=== PATIENT | female | born 1980 | race Caucasian/White ===

== ENCOUNTER 2019-02-25 09:20 | Emergency (ER) | payer OTHER, MEDICAID ==
[~2019-02-25] VITALS: Ht 162.6 cm; Wt 102.5 kg
[2019-02-25 09:24] VITALS: BP 129/68
--- NOTE | 2019-02-25 10:12 | NUR ---
PT AMBULATED TO ER BED 02
--- NOTE | 2019-02-25 10:15 | NUR ---
BIB MOTHER. AAO X4 C/O R LOWER BACK RADIATING TO R SIDE OF THE BODY PAIN X 5 DAYS, DENIES FALL OR INJURY. PT STATES 8/10 ACHING PAIN. STEADY GAIT. DENIES SOB, DENIES DYSURIA. HOB UP. BED SIDE RAILS UP X1. ON LOW BED POSITION, LOCKED. ER MADE AWARE OF PT STATUS.
[2019-02-25] MEDS ORDERED: LEVOFLOXACIN 500 MG TAB PO ONE (12:55)
[2019-02-25] MEDS ORDERED: MORPHINE SULFATE 4 MG/ML SYR IM ONE (12:55)
[2019-02-25] MEDS ORDERED: KETOROLAC 60 MG/2 ML VIAL IM ONE (12:55)
--- NOTE | 2019-02-25 12:57 | NUR ---
DR CUEVAS AT BEDSIDE FOR PT EVALUATION
[2019-02-25 13:06] LABS: APPEARANCE,URINE CLEAR (CLEAR); BILIRUBIN,URINE NEGATIVE (NEGATIVE); BLOOD, URINE NEGATIVE (NEGATIVE); COLOR,URINE YELLOW (YELLOW); LEUKOCYTE ESTERASE ,URINE NEGATIVE (NEGATIVE); NITRITE, URINE NEGATIVE (NEGATIVE); PH,URINE 6.5 (5.0-9.0); UGLUCOSE NEGATIVE (NEGATIVE)
[2019-02-25 14:40] VITALS: BP 125/62
--- NOTE | 2019-02-25 14:40 | NUR ---
Patient discharged with v/s stable. Written and verbal after care instructions given and explained. Patient alert, oriented and verbalized understanding of instructions. Ambulatory with steady gait. All questions addressed prior to discharge. ID band removed. Patient advised to follow up with PMD. Rx of Voltaren XR given. Patient educated on indication of medication including possible reaction and side effects. Opportunity to ask questions provided and answered.
== END 2019-02-25 14:40 | disposition home or self-care (01) ==
LOC: MED 09:20
DX: M54.41 Lumbago with sciatica, right side (principal)
CPT/HCPCS: 81002; 81003; 81025; 96372; 99283; J1885; J2270

== ENCOUNTER 2019-03-29 01:05 | Emergency (ER) | payer OTHER, MEDICAID ==
[~2019-03-29] VITALS: Ht 162.6 cm; Wt 92.5 kg
[2019-03-29 01:17] VITALS: BP 128/76
--- NOTE | 2019-03-29 01:19 | NUR ---
PT AMBULATORY TO ER LOBBY W/ STEADY GAIT IN STABLE CONDITION.
--- NOTE | 2019-03-29 01:51 | NUR ---
PT AMBULATED TO ER BED 1
--- NOTE | 2019-03-29 01:55 | NUR ---
BIB FAMILY WITH REPORTS CONGESTION, BILATERAL EAR PAIN AND THROAT PAIN SINCE YESTERDAY. STATES SHE CAN NOT BREATH THROUGH HER NOSE AT ALL. REPORTS FEVER YESTERDAY OF UNKNOWN TEMPERATURE. DENIES NVD, CP. PATIENT SITTING UP IN BED WITHOUT S/S OF RESP DISTRESS. ERMD AWARE.
--- NOTE | 2019-03-29 01:58 | NUR ---
DR WILEY AT BEDSIDE.
[2019-03-29] MEDS ORDERED: FAMOTIDINE 20 MG TAB PO ONE (02:10)
[2019-03-29 02:25] VITALS: BP 124/78
--- NOTE | 2019-03-29 02:25 | NUR ---
Patient discharged with v/s stable. Written and verbal after care instructions given and explained. Patient alert, oriented and verbalized understanding of instructions. Ambulatory with steady gait. All questions addressed prior to discharge. ID band removed. Patient advised to follow up with PMD. Rx of PEPCID AND FLONASE given. Patient educated on indication of medication including possible reaction and side effects. Opportunity to ask questions provided and answered.
== END 2019-03-29 02:25 | disposition home or self-care (01) ==
LOC: MED 01:05
DX: F41.0 Panic disorder [episodic paroxysmal anxiety] (principal); J06.9 Acute upper respiratory infection, unspecified; H92.03 Otalgia, bilateral
CPT/HCPCS: 99283

== ENCOUNTER 2019-05-18 13:05 | Emergency (ER) | payer OTHER, MEDICAID ==
[~2019-05-18] VITALS: Ht 170.2 cm; Wt 100.5 kg
[2019-05-18 13:25] VITALS: BP 154/88
--- NOTE | 2019-05-18 13:31 | NUR ---
PATIENT AMBULATED TO BED 4.
--- NOTE | 2019-05-18 13:40 | NUR ---
PT PRESENTS TO ED WITH C/O NUMBNESS TO NECK AND LEFT ARM. DENIES ANY SOB, CP, -N/-V. DENIES FEVER; AFEBRILE AT THIS TIME. PT VERBALIZED FEELING A BURNING SENSATION; DENIES PAIN. PT ALERT AND ORIENTED TO PERSON, PLACE, TIME AND EVENT. PERRLA. BILATERAL HAND POUNCER MACHINE EQUAL; BILATERAL FOOT PUSH EQUAL. NO FACIAL DROOP NOTED. PLACED IN GOWN; CONNECTED TO MONITOR. FAMILY MEMBER AT BEDSIDE. ERMD TO EVALUATE PT. RX: TYLENOL PRN ALLERGIES: DENIES
[2019-05-18 14:58] LABS: BASOPHILS # (AUTO) 0.1 K/uL (0.00-0.22); BASOPHILS % (AUTO) 0.7 % (0.0-2.0); EOSINOPHILS # (AUTO) 0.3 K/uL (0-0.4); HEMATOCRIT 38.1 % (36-48); HEMOGLOBIN 12.8 g/dL (12.0-16.0); LYMPHOCYTES % (AUTO) 23.4 % (20.5-51.1); MEAN CORPUSCULAR HEMOGLOBIN 30 pg (27-31); MEAN CORPUSCULAR HGB CONC 34 g/dL (33-37); MEAN CORPUSCULAR VOLUME 89.8 fL (80-94); MONOCYTES # (AUTO) 0.4 K/uL (0.8-1.0); MONOCYTES % (AUTO) 4.9 % (1.7-9.3); NEUTROPHILS # (AUTO) 5.8 K/uL (1.8-7.7); PLATELET COUNT (AUTO) 207 K/uL (140-450); RED BLOOD CELL COUNT(AUTO) 4.25 MIL/uL (4.20-5.40); RED CELL DISTRIBUTION WIDTH 12.8 % (11.6-13.7); WHITE BLOOD COUNT (AUTO) 8.5 K/uL (4.8-10.8)
[2019-05-18 15:18] LABS: ALBUMIN 3.6 g/dL (3.4-5.0); ANION GAP 12.3 (8-16); CARBON DIOXIDE 28.6 mmol/L (21-32); CREATININE 0.7 mg/dL (0.6-1.3); POTASSIUM 3.9 mmol/L (3.5-5.1); TOTAL BILIRUBIN 0.7 mg/dL (0.0-1.0)
--- NOTE | 2019-05-18 16:33 | NUR ---
Patient appears to be resting comfortably in bed. Vital Signs within normal limits. Respirations even and unlabored.
[2019-05-18] MEDS ORDERED: KETOROLAC 15 MG/ML VIAL IVP ONE (17:05)
[2019-05-18 17:27] VITALS: BP 154/88
--- NOTE | 2019-05-18 17:28 | NUR ---
DPatient discharged with v/s stable. Written and verbal after care instructions given and explained. Patient alert, oriented and verbalized understanding of instructions. Ambulatory with steady gait. All questions addressed prior to discharge. ID band removed. Patient advised to follow up with PMD. Rx of Motrin given. Patient educated on indication of medication including possible reaction and side effects. Opportunity to ask questions provided and answered.
== END 2019-05-18 17:28 | disposition home or self-care (01) ==
LOC: MED 13:05
DX: R07.89 Other chest pain (principal); R19.7 Diarrhea, unspecified; R06.02 Shortness of breath; R05 Cough
CPT/HCPCS: 36415; 71046; 80053; 81025; 84484; 85025; 93005; 96372; 99284; J1885

== ENCOUNTER 2022-09-24 14:10 | Emergency (ER) | payer OTHER, MEDICAID ==
[~2022-09-24] VITALS: Ht 160 cm; Wt 95.3 kg
[2022-09-24 14:22] VITALS: BP 112/86
[2022-09-24] MEDS ORDERED: ALBU0.0912 IH (15:30)
[2022-09-24] MEDS ORDERED: TAM75 PO (15:30)
[2022-09-24 15:43] VITALS: BP 132/76
--- NOTE | 2022-09-24 15:43 | NUR ---
Patient discharged with v/s stable. Written and verbal after care instructions given and explained. Patient verbalized understanding. Ambulatory with steady gait. All questions addressed prior to discharge. Advised to follow up with PMD.
== END 2022-09-24 15:43 | disposition home or self-care (01) ==
LOC: MED 14:10
DX: J10.1 Influenza due to other identified influenza virus with other respiratory manifestations (principal); Z20.822 Contact with and (suspected) exposure to COVID-19
CPT/HCPCS: 99283